=== PATIENT | female | born 1940 | race Caucasian/White ===

== ENCOUNTER 2016-07-23 10:12 | Day surgery (SDC) | payer MEDICARE ==
[2016-07-19 13:39] LABS: BASOPHILS 0.8 %; BASOPHILS ABSOLUTE 0.05 10/3/uL (0.0-0.16); EOSINOPHILS 3.9 %; EOSINOPHILS ABSOLUTE 0.26 10/3/uL (0.0-0.53); IMMATURE GRANULOCYTES 0.2 %; IMMATURE GRANULOCYTES ABSOLUTE 0.01 10/3/uL (0.0-0.11); LYMPHOCYTES 44.3 %; LYMPHOCYTES ABSOLUTE 2.94 10/3/uL (0.67-4.30); MEAN CORPUS HGB CONC 33.3 g/dL (32.0-36.0); MEAN CORPUSCULAR HEMOGLOB 30.2 pg (26.0-34.0); MEAN PLATELET VOLUME 11.1 fL (9.2-13.0); MONOCYTES 14.3 %; MONOCYTES ABSOLUTE 0.95 10/3/uL (0.21-1.20); NEUTROPHILS 36.5 %; NEUTROPHILS ABSOLUTE 2.42 10/3/uL (2.02-8.40); PLATELET COUNT 190 10/3/uL (150-400); RBC DISTRIBUTION WIDTH 13.6 % (12.0-16.0); WHITE BLOOD CELLS 6.6 10/3/uL (4.5-10.5)
[2016-07-19 13:42] LABS: HEMATOCRIT 42.9 % (36.0-48.0); HEMOGLOBIN 14.3 g/dL (12.0-16.0); MANUAL DIFF NO %; MEAN CORPUSCULAR VOLUME 90.5 fL (80-100); RED CELL COUNT 4.74 10/6/uL (4.0-5.6)
[2016-07-19 13:59] LABS: A/G RATIO 1.1 (0.7-1.9); ALKALINE PHOSPHATASE 91 U/L (45-117); BUN (BLOOD UREA NITROGEN) 8 MG/DL (6-23); CALCIUM, SERUM 9.3 MG/DL (8.5-10.4); CHLORIDE, SERUM 105 MMOL/L (96-112); CO2 (CARBON DIOXIDE) 29 MMOL/L (24-34); CREATININE 1.08 MG/DL (0.55-1.02); GFR AFRICAN AMERICAN 58 ML/MIN (>=60); GFR NON AFRICAN AMERICAN 50 ML/MIN (>=60); GLOBULIN 3.5 G/DL (2.5-4.1); GLUCOSE, SERUM 91 MG/DL (60-99); POTASSIUM, SERUM 3.7 MMOL/L (3.5-5.3); SGOT(AST) 44 U/L (5-40); SGPT(ALT) 72 U/L (5-65); SODIUM, SERUM 141 MMOL/L (135-148); TOTAL BILIRUBIN 1.3 MG/DL (0-1.2); TOTAL PROTEIN 7.5 G/DL (6.0-8.5)
--- NOTE | ~2016-07-23 | OP ---
Record Of Operation [facility] [address] [place]. [address] NAME: SERVANDO TIJERINA : 42 STATUS : [facility]#: [id number] AGE: 76 ADM/REG DATE : 07/23/16 MR#: [id number] REPORT SERV DATE: 07/23/16 DICTATED BY: CHANTAL RUELAS III DATE: 07/23/16 REPORT STATUS : Draft TRANSCRIBED BY: MODL DATE: 07/23/16 DATE OF PROCEDURE: 07/23/2016 PREOPERATIVE DIAGNOSIS: Symptomatic cholelithiasis and cholecystitis. POSTOPERATIVE DIAGNOSIS: Symptomatic cholelithiasis and cholecystitis, with subacute and acute cholecystitis, and incarcerated umbilical hernia. PROCEDURE: Laparoscopic cholecystectomy with repair of incarcerated umbilical hernia. SURGEON: Chantal Ruelas M.D. ANESTHESIA: General with intubation. COMPLICATIONS: None. ESTIMATED BLOOD LOSS: Less than 5 mL. SPECIMENS: Gallbladder. DRAINS: None. LAP AND SPONGE COUNT: Correct x3. BRIEF HISTORY: This 76-year-old female, presented with evidence for symptomatic cholelithiasis and cholecystitis. It was felt that laparoscopic cholecystectomy, possible laparotomy, was indicated. This procedure, the risks, benefits, and alternatives, including not limited to the risk for bleeding, infection, common bile duct injury, bile leak, retained common bile stone, enterotomy, or injury to any abdominal structure, the definite possible need for laparotomy, possible persistence of her symptoms unrelieved by surgery, the possibility of postoperative diarrhea or incisional hernia, and unforeseen complications including deep venous thrombosis, pulmonary embolus, myocardial infarction, stroke, pneumonia, and , were fully and completely were explained to the patient and family at length prior to surgery. The fact that this was a major operation with risk for major morbidity and mortality, no guarantee for relief her symptoms were explained. The expected length of recovery with open laparoscopic procedures was explained. The patient and family had questions, which were answered. They fully understood the risks and agreed to surgery as planned. FINDINGS: The patient's gallbladder was severely diseased. The patient had at least one extremely large gallstone within the gallbladder. The gallbladder hernandez were markedly thickened, edematous, with inflammatory changes consistent with both chronic and subacute or acute cholecystitis. The patient is found to have an incarcerated umbilical hernia which was repaired after the gallbladder was removed from the infraumbilical incision. DESCRIPTION OF PROCEDURE: After being properly identified and after discussing risks of Record Of Operation [address] [place]. [address] NAME: SERVANDO TIJERINA : 42 STATUS : [facility]#: [id number] AGE: 76 ADM/REG DATE : 07/23/16 MR#: [id number] REPORT SERV DATE: 07/23/16 DICTATED BY: CHANTAL RUELAS III DATE: 07/23/16 REPORT STATUS : Draft TRANSCRIBED BY: BART DATE: 07/23/16 surgery with the patient and family again in the preoperative area, she was taken to the operating room, and placed in the supine position on the operating room table. General anesthesia was administered. She was intubated without difficulty. The abdomen was prepped and draped sterilely in the usual fashion. After an appropriate "time-out" per [employer] standards, a small transverse incision was made below the umbilicus. The skin and fascia on either side was elevated with towel clips. A Veress needle was placed through the incision into the peritoneal cavity. Correct position of the needle in the peritoneal cavity was confirmed by the hanging drop test. The abdominal cavity was insufflated to about 13 mmHg of carbon dioxide. Correct position of air in the peritoneal cavity was confirmed by palpation. The Veress needle was removed and replaced in with a 10 mm trocar. The laparoscope was placed through this. The patient has placed in reverse Trendelenburg position and to her left. A second 10 mm trocar was placed just below the xiphoid process, to the right of falciform ligament, under direct vision with the laparoscope. Two 5 mm trocars were placed along the right subcostal margin, one in the midaxillary line, and the other in the midclavicular line. These were also placed under direct vision with the laparoscope. The upper abdomen was inspected. The above findings were confirmed. The gallbladder was severely diseased, being very distended, with marked thickening and inflammatory changes, and evidence for early necrosis of the gallbladder. The liver and remainder of the upper abdomen were otherwise unremarkable as far as we could determine through the laparoscope. The appropriate instruments were placed through the trocars. The gallbladder was decompressed with a large needle. The adhesions between the gallbladder and omentum were carefully divided. The gallbladder was then grasped and the infundibulum of gallbladder was retracted laterally and inferiorly, so as to expose the triangle of Calot. Using sharp dissection, the cystic duct was carefully and meticulously defined proximally and distally. The cystic duct was fairly long. The junction of the cystic duct with the common bile duct was appreciated, but was not skeletonized. The cystic artery was similarly defined proximally and distally. The fibrous and fatty tissue between these structures was divided, so as to clearly identify the critical view of safety and triangle of Calot. The lower portion the gallbladder was dissected away from the liver plates, so as to clearly identify the critical angle. Once these structures were clearly defined, the cystic duct was clipped with two clips, one on the common bile duct side, and one on the gallbladder side, all placed as close to the gallbladder as possible, taking care not encroach upon or injure the common bile duct. The cystic duct was then divided between these clips as close to the gallbladder as possible. We elected not to perform a cholangiogram, because there was no preoperative or intraoperative evidence for biliary dilatation, because the patient's preoperative liver enzymes were normal, and because her biliary anatomy was clearly defined. The cystic artery was similarly clipped and divided as close to the gallbladder as possible. Using the spatula and the cautery, the gallbladder was carefully dissected from the liver bed. This went very well. Before the gallbladder was completely removed, the gallbladder bed and portal areas were irrigated numerous times with saline. The saline was aspirated dry. This process was repeated several times until hemostasis was meticulously and thoroughly assured in all areas. It was also assured that the clips in the portal area were in good position. There was no extravasation of bile from any accessory bile ducts. Once this was assured, gallbladder was completely dissected away from the liver and placed in an Endopouch. The liver bed was elevated, irrigated, inspected for meticulous and thorough Record Of Operation [address] [address] NAME: SERVANDO TIJERINA : 42 STATUS : [facility] PAT#: [id number] AGE: 76 ADM/REG DATE : 07/23/16 MR#: [id number] REPORT SERV DATE: 07/23/16 DICTATED BY: CHANTAL RUELAS III DATE: 07/23/16 REPORT STATUS : Draft TRANSCRIBED BY: MODL DATE: 07/23/16 hemostasis and for absence of any biliary extravasation. Once this was assured, gallbladder and the Endopouch were brought out through the infraumbilical trocar site. This was done after the laparoscope was placed through the subxiphoid trocar. It was noted that the patient had a chronically incarcerated umbilical hernia. The lateral two trocars were removed and these three lower trocar sites were inspected on the underside for hemostasis with the laparoscope. Finally, the subxiphoid trocar was removed under direct vision with the laparoscope. We turned our attention to the umbilical hernia. The incision which had been made was extended on either side. Using sharp dissection, the navel was elevated superiorly. We continued our dissection down to the fascial defect. There was some omentum chronically incarcerated within this. Using sharp dissection, the omentum was carefully reduced from the surrounding tissues and reduced back in the abdominal cavity. Using sharp dissection, the skin and subcutaneous tissue around the defect anteriorly was fully mobilized. The underside of the fascia posteriorly was palpated to be certain there was no bowel beneath this. Hemostasis was assured. Once hemostasis was assured, the fascial edges were reapproximated with interrupted 0 Prolene sutures. The fascia came together nicely with no tension. Hemostasis was assured. Subcutaneous tissue was closed with a running 3-0 chromic suture. The skin incisions were closed with running subcuticular 4-0 Monocryl stitches. They were injected with 0.5% Marcaine. Dressings were applied. Anesthesia was reversed. The patient was taken to the recovery room in stable condition. She tolerated the procedure well. Her family was informed the results of surgery. The patient to be discharged when stable and comfortable tolerating liquids, and able to void and ambulate. Her family was advised that she should keep her wounds clean and dry for 48 hours, that she should not drive for three to four days after surgery, or while using narcotics, and that she should resume her usual medications. They are advised she should not perform any heavy lifting for four to five weeks. She has been given a prescription for Percocet 7.5 one t.i.d., #12, as needed for pain, which she was advised not to use while driving. She has been asked to return in two weeks for followup or sooner if any nausea, vomiting, fever, chills, wound drainage, abdominal pain, weakness, or other problems prior to that time. RHJ/MODL Chantal Ruelas III, M.D. / [id number] CC: Sundar Marshall III, M.D.
--- NOTE | ~2016-07-23 | PREOPHP ---
PreOp History and Physical [address] [place]. [address] NAME: SERVANDO TIJERINA : 42 STATUS : REG [facility]#: [id number] AGE: 76 ADM/REG DATE : 07/23/16 MR#: [id number] REPORT SERV DATE: 07/23/16 DICTATED BY: CHANTAL JOYNER III DATE: 07/13/16 REPORT STATUS : Draft TRANSCRIBED BY: BART DATE: 07/13/16 HISTORY OF PRESENT ILLNESS: This 76-year-old female comes to the operating room for laparoscopic cholecystectomy, possible laparotomy, for symptomatic cholelithiasis and cholecystitis. The patient has recently had an episode of acute abdominal pain which required evaluation in an emergency room. She was found to have gallstones. She had an episode of acute biliary colic. The patient comes to the operating room now for laparoscopic cholecystectomy, possible laparotomy, for symptomatic cholelithiasis and cholecystitis. The patient describes the pain as in the epigastric area. This has been associated with nausea. PAST MEDICAL HISTORY: Hypertension and transient ischemic attack in the past. ALLERGIES: NONE. MEDICATIONS: Amlodipine, magnesium oxide, aspirin, and Flexeril. PAST SURGICAL HISTORY: History of status post bilateral hip replacement. FAMILY HISTORY: Unremarkable. SOCIAL HISTORY: No history of tobacco or alcohol use. REVIEW OF SYSTEMS: The patient's 14-point review of systems is otherwise unremarkable. PHYSICAL EXAMINATION: OBJECTIVE PHYSICAL EXAM: GENERAL: This is a female, in no acute distress. She is alert and oriented x3. VITAL SIGNS: Blood pressure 138/82, pulse 114, and temperature 96.9. HEENT: Unremarkable. NEUROLOGIC: Cranial nerves 2 through 12 are normal. LUNGS: Clear. CARDIAC: Normal. ABDOMEN: Soft. Nontender. No masses. EXTREMITIES: Normal. LABORATORY DATA: Recent abdominal ultrasound shows cholelithiasis with biliary sludge and significant gallbladder wall thickening. ASSESSMENT: 1. A 76-year-old female with symptomatic cholelithiasis, cholecystitis, and recent episode of acute biliary colic, requiring evaluation in the emergency room. 2. Hypertension. 3. History of transient ischemic attack in the past. PreOp History and Physical [address] [address] NAME: SERVANDO TIJERINA : 42 STATUS : REG [facility]#: [id number] AGE: 76 ADM/REG DATE : 07/23/16 MR#: [id number] REPORT SERV DATE: 07/23/16 DICTATED BY: CHANTAL JOYNER III DATE: 07/13/16 REPORT STATUS : Draft TRANSCRIBED BY: BART DATE: 07/13/16 PLAN: The patient comes to the operating room now for laparoscopic cholecystectomy, possible laparotomy. This procedure, the risks, benefits, and alternatives, including but not limited to the risk for bleeding, infection, common bile duct injury, bile leak, retained common bile duct stone, enterotomy, injury to any abdominal structure, the definite possible need for laparotomy, possible persistence of her symptoms unrelieved by surgery, positive postoperative diarrhea or incisional hernia, and unforeseen complications including deep venous thrombosis, pulmonary embolus, myocardial infarction, stroke, pneumonia, and , have been fully and completely explained to the patient at length prior to surgery. The fact that this is a major operation with risk for major morbidity and mortality with no guarantee for relief of her symptoms has been explained. The expected length of recovery with both open and laparoscopic procedures has been explained. The patient had questions, which have been answered. She clearly understands the risks and agrees to the surgery as planned. LELIA/BART Chantal Joyner III, M.D. / [id number]
[~2016-07-23 10:12] MED LIST: ASAB PO; ATEN25 PO; BACDS PO; C25 PO; C5 PO; CENTRUM TAB1 TAB PO; CIP5 PO; FLEXERIL5 MG PO; LORT7 PO; MAGOX4 PO; MOBIC7.5 PO; NORCO1 TA1 PO; NORV5 PO; P10 PO; P5 PO; PCET PO; PRIN20 PO; PROBIOTIC PO; VANCOCIN HCL250 MG PO; VITS; ZESTORETIC1 TA1 PO
[2016-07-23 17:38] LABS: HEMATOCRIT 40.8 % (36.0-48.0); HEMOGLOBIN 13.5 g/dL (12.0-16.0)
[2017-01-01] MEDS ORDERED: ASAB PO (12:53)
[2017-01-01] MEDS ORDERED: MAGOX4 PO (12:53)
[2017-01-01] MEDS ORDERED: IBU-200200 MG PO (12:54)
[2017-01-01] MEDS ORDERED: NORV5 PO (13:02)
[2017-01-06] MEDS ORDERED: DSS PO (11:47)
[2017-01-06] MEDS ORDERED: CIP5 PO (11:48)
[2017-01-06] MEDS ORDERED: FORTAMET500 MG PO (11:49)
[2017-01-06] MEDS ORDERED: PCET PO (11:50)
[2017-01-06] MEDS ORDERED: PRESERVISION A1 EAC1 PO (11:51)
[2017-01-06] MEDS ORDERED: FE C PO (11:52)
== END 2016-07-23 19:10 | disposition home or self-care (01) ==
LOC: SDC 10:12
PROVIDERS: Surgery
PROC: 0FT44ZZ Resection of Gallbladder, Percutaneous Endoscopic Approach (ICD-10-PCS; principal; 2016-07-23 12:30)
PROC: 0WQF0ZZ Repair Abdominal Wall, Open Approach (ICD-10-PCS; 2016-07-23 12:30)
DX: K80.12 Calculus of gallbladder with acute and chronic cholecystitis without obstruction (principal); I10 Essential (primary) hypertension; Z86.73 Personal history of transient ischemic attack (TIA), and cerebral infarction without residual deficits; Z98.890 Other specified postprocedural states; Z79.82 Long term (current) use of aspirin; Z79.899 Other long term (current) drug therapy; K42.0 Umbilical hernia with obstruction, without gangrene
CPT/HCPCS: 71020; 80053; 85014; 85018; 85025; 88304; 93005; A9270-GY; J0690; J1170; J1885; J2370; J2405; J2550; J2710; J3010